=== PATIENT | female | born 1975 | race Caucasian/White ===

== ENCOUNTER → 2020-02-15 | Outpatient (CLI) | payer OTHER ==
--- NOTE | 2020-02-15 12:07 | MM ---
Reason for exam: screening (asymptomatic). Baseline mammogram. History: Taking hormonal contraceptives for 22 years. Physical Findings: Nurse did not find any significant physical abnormalities on exam. MG 3D Screening Mammo W/Cad Bilateral CC, MLO, and XCCL view(s) were taken. There are scattered fibroglandular densities. Finding: There is a typically benign 23 x 7 mm equal density (isodense), oval mass located 5 cm from the nipple in the 10 o'clock position of the right breast. These results were verbally communicated with the patient and result sheet given to the patient on 02/15/20. ASSESSMENT: Incomplete: need additional imaging evaluation, BI-RAD 0 RECOMMENDATION: Ultrasound of the right breast.
--- NOTE | 2020-02-15 12:08 | USB ---
Reason for exam: additional evaluation requested from abnormal screening. History: Taking hormonal contraceptives for 22 years. US Breast Workup Limited RT Right limited breast ultrasound including focal area of concern, retroareolar and axilla demonstrates a 2.1 x 0.5 x 1.5cm oval, cystic lesion at 10 o'clock and a 0.6cm oval lymph node at the axilla tail. These results were verbally communicated with the patient and result sheet given to the patient on 02/15/20. ASSESSMENT: Benign, BI-RAD 2 RECOMMENDATION: Return to routine screening mammogram schedule for both breasts.
== END | disposition home or self-care (01) ==
LOC: RADMAMWWP 08:53
PROVIDERS: ATTEND Obstetrics & Gynecology
DX: Z12.31 Encounter for screening mammogram for malignant neoplasm of breast (principal); R92.8 Other abnormal and inconclusive findings on diagnostic imaging of breast; Z80.3 Family history of malignant neoplasm of breast
CPT/HCPCS: 77063; 77067

== ENCOUNTER 2021-03-07 06:54 | Emergency (ER) | payer OTHER ==
[2021-03-07 06:59] VITALS: BP 133/87; PULSE 89; RESP 22; TEMP 98.9
--- NOTE | 2021-03-07 07:18 | ED ---
General Adult HPI - General Chief complaint: Skin/Abscess/Foreign Body Stated complaint: Left Hand Animal Bite Time Seen by Provider: 03/07/21 06:59 Source: patient, RN notes reviewed Mode of arrival: ambulatory Limitations: no limitations - History of Present Illness Initial comments: Patient is a 45-year-old female presented to the ED today for cat bite to left dorsum of hand on Thursday. Patient states she went to [facility] and received Keflex on Thursday for bite. Patient reports increased swelling in the hand, with slight increase in pain. Patient denies noticing any edema or redness traveling up or down extremity. Patient is express a slight discomfort with movement of index finger. Patient also expresses midsternal erythematous rash noticed lat night when taking shower. - Related Data Previous Rx's Medication Instructions Recorded Doxycycline Monohydrate [Monodox] 100 mg PO Q12HR #20 cap 03/07/21 Allergies Allergy/AdvReac Type Severity Reaction Status Date / Time amoxicillin [From Augmentin] Allergy Nausea & Verified 03/07/21 06:59 Vomiting clavulanic acid Allergy Nausea & Verified 03/07/21 06:59 [From Augmentin] Vomiting Review of Systems ROS Statement: Those systems with pertinent positive or pertinent negative responses have been documented in the HPI. ROS Other: All systems not noted in ROS Statement are negative. Past Medical History Past Medical History: No Reported History History of Any Multi-Drug Resistant Organisms: None Reported Past Surgical History: Orthopedic Surgery Additional Past Surgical History / Comment(s): TMJ Past Psychological History: No Psychological Hx Reported Smoking Status: Never smoker Past Alcohol Use History: Occasional Past Drug Use History: None Reported General Exam Limitations: no limitations General appearance: alert, in no apparent distress Respiratory exam: Present: normal lung sounds bilaterally. Absent: respiratory distress, wheezes, rales, rhonchi, stridor Cardiovascular Exam: Present: regular rate, normal rhythm, normal heart sounds. Absent: systolic murmur, diastolic murmur, rubs, gallop, clicks Left Hand Wrist exam: Present: tenderness, swelling Hand L/R Back: 1 - cat bite Skin exam: Present: warm, dry, intact, erythema (Dorsum of left hand) Course Vital Signs 03/07/21 06:55 Temperature 98.9 F Pulse Rate 89 Respiratory 22 Rate Blood Pressure 133/87 O2 Sat by Pulse 99 Oximetry Medical Decision Making - Medical Decision Making For cat bite to dorsum of left hand switching coverage from Keflex to doxycycline. She has no evidence of lymphangitis., Afebrile will have close follow-up. Disposition Clinical Impression: Cat bite of hand Disposition: HOME SELF-CARE Condition: Stable Additional Instructions: Please return to the Emergency Department if symptoms worsen or any other concerns. Prescriptions: Doxycycline Monohydrate [Monodox] 100 mg PO Q12HR #20 cap Is patient prescribed a controlled substance at d/c from ED?: No Referrals: None,Stated [Primary Care Provider] - 1-2 days Time of Disposition: 07:27
== END 2021-03-07 07:52 | disposition home or self-care (01) ==
LOC: EC 06:54
DX: S61.452A Open bite of left hand, initial encounter (principal); Z88.0 Allergy status to penicillin; Z88.1 Allergy status to other antibiotic agents; W55.01XA Bitten by cat, initial encounter
CPT/HCPCS: 99283